=== PATIENT | female | born 2000 | race African-American/Black ===

== ENCOUNTER 2024-07-12 10:15 | Outpatient (CLI) | payer OTHER, SELFPAY ==
[2024-07-12 11:03] LABS: Basophils Percent Auto 0.5 % (0.2-1.2); Eosinophils Absolute Auto 0.1 K/mm3 (0-0.3); Eosinophils Percent Auto 3.6 % (0-4.4); Hematocrit 39.5 % (37.0-47.0); Hemoglobin 12.8 g/dL (12.0-15.0); Immature Granulocyte Absolute 0.01 K/mm3 (0.00-0.031); Immature Granulocyte Percent A 0.3 % (0-0.5); Lymphocytes Percent Auto 40.6 % (18.3-44.2); Mean Corpuscular HGB Conc 32.4 g/dl (32-36); Mean Corpuscular Hemoglobin 28.4 pg (26-34); Mean Corpuscular Volume 87.6 fl (80-100); Mean Platelet Volume 11.4 fl (7.4-10.4); Monocytes Absolute Auto 0.4 K/mm3 (0.1-0.6); Monocytes Percent Auto 11.2 % (2.6-8.5); Neutrophils Absolute Auto 1.7 K/mm3 (1.3-6.7); Neutrophils Percent Auto 43.8 % (45.5-73.1); Platelet Count Result 194 k/mm3 (150-375); Red Blood Count 4.51 M/mm3 (4.2-5.4); Red Cell Distribution Width 13.5 % (11.5-14.5); White Blood Count 3.9 K/mm3 (4.5-10.0)
[2024-07-12 11:15] LABS: Hemoglobin A1C 5.8 % (<5.7)
[2024-07-12 11:18] LABS: Iron 94 ug/dL (37-170)
[2024-07-12 11:28] LABS: Percent Iron Saturation 29 % (20-50)
[2024-07-12 11:37] LABS: Beta HCG Quantitative < 2.39 mIU/ML
[2024-07-12 12:17] LABS: Free T4 Free Thyroxine Reflex 0.77 ng/dL (0.78-2.19)
[2024-07-13 02:53] LABS: Progesterone <0.5 ng/mL
[2024-07-13 06:20] LABS: DHEA-Sulfate 320 mcg/dL (14-349); FSH 4.7 mIU/mL; Insulin Level Total 23.6 uIU/mL; Sex Hormone Binding Globulin 31 nmol/L (17-124)
[2024-07-17 16:07] LABS: Testosterone Free 3.5 pg/mL (0.1-6.4); Testosterone Total 22 ng/dL (2-45)
== END 2024-07-12 10:16 | disposition home or self-care (01) ==
PROVIDERS: Visit Provider Obstetrics & Gynecology
DX: N92.6 Irregular menstruation, unspecified (principal); E66.811 Obesity, class 1; L70.9 Acne, unspecified
CPT/HCPCS: 36415; 82627; 82670; 82728; 83001; 83002; 83036; 83498; 83525; 83527; 83540; 83550; 84144; 84146; 84270; 84402; 84403; 84439; 84443; 84702; 85025

== ENCOUNTER 2024-08-03 15:10 | Emergency (ER) | payer OTHER, SELFPAY ==
[2024-08-03] VITALS (7 sets, daily range): BP systolic 109–140; BP diastolic 69–85; PULSE 102–151; RESP 16–19; TEMP 36.4; O2SAT 70–100
--- NOTE | ~2024-08-03 | XR_ITS ---
XR chest 2V Ordering provider: Rakesh Garza MD History: 24 years Female with . elevated heart rate . Comparison: September 09, 2023 FINDINGS: MEDIASTINUM: The cardiac silhouette is not enlarged. LUNGS: No infiltrates, effusions or pneumothorax. OTHER: No free air under the diaphragm. IMPRESSION: No acute cardiopulmonary pathology. Reviewed, dictated and finalized at location A.
--- NOTE | 2024-08-03 15:15 | ECG_ITS ---
Test Date: 2024-08-03 15:20:34 Measurements Intervals [place] Rate: 162 P: 211 LA: 77 QRS: 52 QRSD: 118 T: 0 QT: 259 QTc: 426 Interpretive Statements SINUS TACHYCARDIA WITH SHORT LA INTERVAL MARKED ST DEPRESSION, CONSIDER SUBENDOCARDIAL INJURY [0.2+ mV ST DEPRESSION] No previous ECG available for comparison Electronically Signed On 08-04-2024 12:35:55 CDT by Nicholas Calderon M.D.
[2024-08-03 15:50] LABS: Basophils Absolute Auto 0.1 K/mm3 (0.0-0.1); Basophils Percent Auto 0.7 % (0.2-1.2); Eosinophils Absolute Auto 0.2 K/mm3 (0-0.3); Eosinophils Percent Auto 2.9 % (0-4.4); Hematocrit 39.8 % (37.0-47.0); Hemoglobin 13.3 g/dL (12.0-15.0); Immature Granulocyte Absolute 0.02 K/mm3 (0.00-0.031); Immature Granulocyte Percent A 0.3 % (0-0.5); Lymphocytes Absolute Auto 2.91 K/mm3 (0.9-3.2); Lymphocytes Percent Auto 38.2 % (18.3-44.2); Mean Corpuscular HGB Conc 33.4 g/dl (32-36); Mean Corpuscular Hemoglobin 28.5 pg (26-34); Mean Corpuscular Volume 85.4 fl (80-100); Mean Platelet Volume 12.1 fl (7.4-10.4); Monocytes Absolute Auto 0.8 K/mm3 (0.1-0.6); Monocytes Percent Auto 10.5 % (2.6-8.5); Neutrophils Absolute Auto 3.6 K/mm3 (1.3-6.7); Neutrophils Percent Auto 47.4 % (45.5-73.1); Platelet Count Result 246 k/mm3 (150-375); Red Blood Count 4.66 M/mm3 (4.2-5.4); Red Cell Distribution Width 12.9 % (11.5-14.5); White Blood Count 7.6 K/mm3 (4.5-10.0)
[2024-08-03 16:01] LABS: INR 1.1; Prothrombin Time 14.7 Seconds (11.1-14.7)
[2024-08-03 16:02] LABS: Partial Thromboplastin Time 27.9 Seconds (22.3-36.8)
[2024-08-03 16:05] LABS: Alanine Aminotransferase 18 U/L (6-35); Albumin Level 4.8 g/dL (3.5-5.1); Alkaline Phosphatase 56 U/L (38-126); Anion Gap 15 mmol/L (4-12); Aspartate Amino Transferase 31 U/L (14-36); Bilirubin,Total 1.1 mg/dL (0.2-1.3); Blood Urea Nitrogen 11 mg/dL (7-17); Calcium 9.6 mg/dL (8.4-10.2); Carbon Dioxide 18 mmol/L (22-30); Chloride 104 mmol/L (98-107); Estimated CRCL calculation 83 ml/min; Estimated Glomerular Filt Rate > 60; Glucose 135 mg/dL (65-110); Lipase 76 U/L (23-300); Potassium 3.1 mmol/L (3.4-5.0); Sodium 137 mmol/L (137-145)
[2024-08-03 16:15] LABS: Troponin I < 0.012 ng/mL (0.000-0.034)
--- NOTE | 2024-08-03 16:36 | ED_ITS ---
HPI - Arrhythmia/Palpitations General Chief Complaint: Arrhythmia/Palpitations Stated Complaint: Dizzy, light headed, feels out of it Time Seen by Provider: 08/03/24 16:08 History of Present Illness HPI narrative: Pt presents with feeling of heart palpitations and feeling of weakness and just not feeling right. Pt denies CP or SOB. Pt has no uti symptoms or cough or fever. Related Data Home Medications ?Medication ?Instructions ?Recorded ?Confirmed ?Last Taken ?Type spironolactone 100 mg tablet 100 mg PO DAILY 06/22/24 06/23/24 Unknown History Allergies Allergy/AdvReac Type Severity Reaction Status Date / Time No Known Allergies Allergy Verified 08/03/24 15:11 Review of Systems 2 Review of Systems: All systems reviewed & are unremarkable except as noted in HPI and below [facility] Social History Social History (Updated 06/23/24 @ 08:13 by Jason Martin MA) Smoking status: Never smoker Alcohol intake: current Substance use: never Substance use type: does not use Do You Feel Safe in your Home?: Yes Lack of Transportation: No Lack of Food: Never True Current Housing: I Have Housing Concerned About Future Housing: No Difficulty Paying Gas/Electric Bills: No Difficulty Paying for Meds: No Currently Unemployed: No Education: Bachelor's Degree Difficulty w/ Childcare or Family Care: No Living arrangements: other Occupation/Education: occupation Additional occupation/education comments: [employer] Gender identity (if verbalized by the patient): Female Sexual Orientation (if Verbalized by the Patient): Straight or Heterosexual Exam 2 Const: General: healthy appearing and no acute distress Nutritional Appearance: well nourished Orientation/consciousness: patient oriented x3 Limitations: no limitations Resp: Effort & Inspection: normal respiratory effort Auscultation: clear to auscultation bilaterally Cardio: Rate: regular rate Rhythm: regular rhythm GI: GI Palp: Yes Soft to palpation and No Tenderness to palpation present (GI) Auscultation: normal bowel sounds Skin: General skin exam: normal color Rashes: no rashes Wounds: no wounds Neuro: General: patient oriented x3, moves all extremities, no focal motor deficits and CN's II-XI intact bilaterally Cranial nerves: Yes Nystagmus not present Speech: normal speech Extrem: General: normal to inspection and no clubbing, cyanosis or edema Psych: Mental Status: mental status grossly normal Affect: normal affect Attitude: cooperative Course Vital Signs Vital signs: Vital Signs Temperature 97.5 F L 08/03/24 15:15 Pulse Rate 151 H 08/03/24 15:15 Respiratory Rate 19 08/03/24 15:15 Blood Pressure 140/76 08/03/24 15:15 Pulse Oximetry 100 08/03/24 15:15 Oxygen Delivery Room Air 08/03/24 15:15 Temperature 97.5 F L 08/03/24 15:15 Pulse Rate 109 H 08/03/24 18:23 Respiratory Rate 19 08/03/24 15:15 Blood Pressure 136/85 08/03/24 16:02 Pulse Oximetry 70 L 08/03/24 15:52 Oxygen Delivery Room Air 08/03/24 15:15 MDM - Arrhythmia/Palpitations MDM Narrative Medical decision making narrative: Pt presents with generalized weakness and palpitations. initial ekg st with short pr and st depression likely rate related. Pt converted on own and second ekg st rate [address] changes. trop neg. TSH low. will ad t4. K low at 3.1 will replace orally. will discuss with Dr Livingston about treatment. discussed with Dr Calderon and would start on metoprolol 50 mg daily and she can see in follow up. Lab Data 08/03/24 15:39 08/03/24 15:39 Labs: Lab Results 08/03/24 08/03/24 Range/Units 15:38 15:39 WBC 7.6 (4.5-10.0) K/mm3 RBC 4.66 (4.2-5.4) M/mm3 Hgb 13.3 (12.0-15.0) g/dL Hct 39.8 (37.0-47.0) % MCV 85.4 (80-100) fl MCH 28.5 (26-34) pg MCHC 33.4 (32-36) g/dl RDW 12.9 (11.5-14.5) % Plt Count 246 (150-375) k/mm3 MPV 12.1 H (7.4-10.4) fl Immature Gran % (Auto) 0.3 (0-0.5) % Neut % (Auto) 47.4 (45.5-73.1) % Lymph % (Auto) 38.2 (18.3-44.2) % [place] % (Auto) 10.5 H (2.6-8.5) % Eos % (Auto) 2.9 (0-4.4) % Baso % (Auto) 0.7 (0.2-1.2) % Lymph # (Auto) 2.91 (0.9-3.2) K/mm3 [place] # (Auto) 0.8 H (0.1-0.6) K/mm3 Eos # (Auto) 0.2 (0-0.3) K/mm3 Baso # (Auto) 0.1 (0.0-0.1) K/mm3 Abs Immat Gran (auto) 0.02 (0.00-0.031) K/mm3 Absolute Neuts (auto) 3.6 (1.3-6.7) K/mm3 Absolute Nucleated RBC 0.000 (0.0-0.012) K/mm3 Nucleated RBC % 0.0 (0.0-0.2) % PT 14.7 (11.1-14.7) Seconds INR 1.1 APTT 27.9 (22.3-36.8) Seconds Sodium 137 (137-145) mmol/L Potassium 3.1 L (3.4-5.0) mmol/L Chloride 104 (98-107) mmol/L Carbon Dioxide 18 L (22-30) mmol/L Anion Gap 15 H (4-12) mmol/L BUN 11 (7-17) mg/dL Creatinine 0.84 (0.7-1.0) mg/dL Estim Creat Clear Calc 83 ml/min Estimated GFR > 60 (59 - ) Glucose 135 H (65-110) mg/dL Calcium 9.6 (8.4-10.2) mg/dL Total Bilirubin 1.1 (0.2-1.3) mg/dL AST 31 (14-36) U/L ALT 18 (6-35) U/L Alkaline Phosphatase 56 (38-126) U/L Troponin I < 0.012 (0.000-0.034) ng/mL Total Protein 9.0 H (6.3-8.2) g/dL Albumin 4.8 (3.5-5.1) g/dL Lipase 76 (23-300) U/L TSH 0.223 L (0.465-4.680) uIU/mL Free T4 0.97 (0.78-2.19) ng/dL Discharge Plan Discharge Clinical Impression: Tachycardia, Hyperthyroidism Patient Disposition: Home Condition: Improved Instructions: Antibiotic Form, Hyperthyroidism (ED), Tachycardia (ED) Patient Language: Jamaican Prescriptions: New metoprolol tartrate 50 mg tablet 50 mg PO DAILY Qty: 30 0RF potassium chloride [K-Tab] 20 mEq tablet extended release 20 meq PO DAILY Qty: 30 0RF No Action spironolactone 100 mg tablet 100 mg PO DAILY metformin 500 mg tablet 500 mg PO QHS Qty: 90 0RF Follow-up/Referrals: Elan Livingston MD [Primary Care Provider] - Nicholas Calderon MD [Physician] -
--- NOTE | 2024-08-03 16:41 | ECG_ITS ---
Test Date: 2024-08-03 17:23:01 Measurements Intervals [place] Rate: 107 P: 55 [place]: 127 QRS: 29 QRSD: 89 T: 37 QT: 340 QTc: 455 Interpretive Statements SINUS TACHYCARDIA NONSPECIFIC T-WAVE ABNORMALITY ABNORMAL RHYTHM ECG Compared to ECG 08/03/2024 15:20:34 HEART RATE HAS DECREASED Electronically Signed On 08-04-2024 12:39:23 CDT by Nicholas Calderon M.D.
[2024-08-03] MEDS: POTASSIUM CHLORIDE 20 MEQ ER TABLET 40 MEQ PO (16:42)
[2024-08-03 17:46] LABS: Thyroid Stimulating Hormone 0.223 uIU/mL (0.465-4.680)
[2024-08-03] MEDS: METOPROLOL TARTRATE 50 MG TAB PO (18:23)
[2024-08-03 18:28] LABS: Free T4 Free Thyroxine 0.97 ng/dL (0.78-2.19)
[2024-08-03 19:08] LABS: Troponin I < 0.012 ng/mL (0.000-0.034)
== END 2024-08-03 19:02 | disposition home or self-care (01) ==
PROVIDERS: Emergency Medicine; Emergency Provider Emergency Medicine; PCP Family Medicine
DX: E05.90 Thyrotoxicosis, unspecified without thyrotoxic crisis or storm (principal); R00.0 Tachycardia, unspecified; Z79.84 Long term (current) use of oral hypoglycemic drugs; Z79.899 Other long term (current) drug therapy
CPT/HCPCS: 36415; 71046; 80053; 83690; 84439; 84443; 84484; 85025; 85610; 85730; 93005; 99284; A9270

== ENCOUNTER 2024-08-09 09:32 | Outpatient (CLI) | payer OTHER, SELFPAY ==
[2024-08-09 10:23] LABS: Anion Gap 9 mmol/L (4-12); Blood Urea Nitrogen 13 mg/dL (7-17); Calcium 9.6 mg/dL (8.4-10.2); Carbon Dioxide 24 mmol/L (22-30); Chloride 104 mmol/L (98-107); Estimated Glomerular Filt Rate > 60; Glucose 93 mg/dL (65-110); Potassium 3.9 mmol/L (3.4-5.0); Sodium 137 mmol/L (137-145)
== END 2024-08-09 09:33 | disposition home or self-care (01) ==
PROVIDERS: PCP Family Medicine; Visit Provider Family Medicine
DX: E87.6 Hypokalemia (principal)
CPT/HCPCS: 36415; 80048

== ENCOUNTER 2024-08-22 16:44 | Outpatient (CLI) | payer OTHER, SELFPAY ==
--- NOTE | ~2024-08-22 | US_ITS ---
Thyroid ultrasound. Clinical History: Thyrotoxicosis Findings: Real-time sonography of the thyroid gland was performed. The right lobe measures 4.9 x 2.0 x 1.8 cm. The left lobe measures 5.1 x 1.9 x 1.0 cm. The isthmus is 4 mm in AP diameter. There is a 2.4 x 1.5 x 1.3 cm hypoechoic solid nodule at the left posterior midpole. Impression: 2.4 cm TR-4 nodule in the right thyroid lobe. FNA recommended to establish histologic diagnosis. Reviewed, dictated and finalized at location . Impression: 2.4 cm TR-4 nodule in the right thyroid lobe. FNA recommended to establish hist ologic diagnosis.
== END 2024-08-22 16:45 | disposition home or self-care (01) ==
LOC: ANHIMG 16:45
PROVIDERS: PCP Family Medicine; Visit Provider Family Medicine
DX: E05.90 Thyrotoxicosis, unspecified without thyrotoxic crisis or storm (principal); E04.1 Nontoxic single thyroid nodule
CPT/HCPCS: 76536

== ENCOUNTER 2024-09-21 10:07 | Outpatient (CLI) | payer OTHER, SELFPAY ==
--- NOTE | ~2024-09-21 | US_ITS ---
EXAMINATION: US FNA w image guidance DATE: 09/21/2024 10:58 INDICATION: Nontoxic single thyroid nodule TECHNIQUE: A time-out was performed to verify the patient's name, date of , and procedure to be performed . The procedure and its benefits and risks were discussed with the patient. Risks specifically discus sed included bleeding and infection. The patient understood the risks and agreed to proceed. The neck was prepped and draped in the usual sterile manner. 3 mL 1% lidocaine was used for local anesthesia . 4 passes were made with a 25G needle into the lesion. Appropriate needle location was documented with continuous sonographic guidance. A sterile bandage was applied. There were no immediate compli cations. FINDINGS: Grayscale ultrasound images demonstrate biopsy needles advanced into the previous noted 2.4 cm right thyroid nodule of concern. IMPRESSION: 1. Successful ultrasound-guided fine needle aspiration of the previous noted 2.4 cm right thyroid no dule of concern. Reviewed, dictated and finalized at location A. IMPRESSION: 1. Successful ultrasound-guided fine needle aspiration of the previous noted 2 .4 cm right thyroid nodule of concern.
--- NOTE | 2024-09-21 10:57 | CY_PTH ---
PATIENT: Elva Ernandez LOC: [facility] U#:[id number] AGE/SX: 24/F ROOM: RE09/21/[address]: Elan Livingston MD : 2000 BED: DIS: 09/21/2024 SPEC #: [id number] RECD: 09/21/24 11:16 STATUS: MANUEL RENicholas #: [id number] [place]: 09/21/24 10:[address]: Elan Livingston DEPT: [facility] Cytology RECD BY: Margaret Rinaldi MLT, ([facility]) Tissues: A - FNA Thyroid Procedures: Hematoxylin and Eosin Stain Cell Block Fine Needle Aspiration Evaluation Fine Needle Aspiration Pathologist
== END 2024-09-21 10:08 | disposition home or self-care (01) ==
PROVIDERS: PCP Family Medicine; Visit Provider Family Medicine
DX: E04.1 Nontoxic single thyroid nodule (principal)
CPT/HCPCS: 10005; 88172; 88173; 88305

== ENCOUNTER 2024-10-31 11:39 | Outpatient (CLI) | payer OTHER, SELFPAY ==
--- OUTSIDE RECORDS SUMMARY | 2024-10-31 12:09 | XMS_ITS | Patient Health Record ---
Author Organization [facility] Address [address] [address] Care Team Providers Care Crystal Inspector Name Role Phone LUKE YUAN Primary Care Provider [phone] Allergies No Known Allergies Reason For Referral No Information Medications Medication SIG (Take, Route, Frequency, Duration) Notes Start Date End Date Status Fluticasone Propionate 50 MCG/ACT 1 spray in each nostril Nasally Once a day; Duration: 30 day(s) 10/22/2020 Active Immunizations Vaccine Route Administration Date Status Comme nts VARICELLA Unknown 06/24/2001 Administered VARICELLA Unknown 06/20/2010 Administered TdaP Unknown 11/28/2011 Administered TB MANTOUX ID Intradermal 06/12/2016 Administered TB MANT[place] ID Intradermal 09/19/2018 Administered PREVNAR 13 Unknown 2000 Administered PREVNAR 13 Unknown 2000 Administered PREVNAR 13 Unknown 2000 Administered MMR Unknown 06/24/2001 Administered MMR Unknown 07/04/2004 Administered Menveo IM Intramuscular 06/12/2016 Administered Meningococcal Conjugate Unknown 10/31/2011 Administered IPV Unknown 2000 Administered IPV Unknown 2000 Administered IPV Unknown 2000 Administered IPV Unknown 12/06/2001 Administered IPV Unknown 07/05/2004 Administered INFLUENZA >3 IM Intramuscular 01/02/2016 Administered HIB (Do Not Use) Unknown 2000 Administered HIB (Do Not Use) Unknown 2000 Administered HIB (Do Not Use) Unknown 2000 Administered HIB (Do Not Use) Unknown 12/06/2001 Administered HEP B Unknown 2000 Administered HEP B Unknown 2000 Administered HEP B Unknown 03/23/2001 Administered hep a Unknown 07/25/2003 Administered hep a Unknown 02/02/2004 Administered GARDASIL Unknown 10/31/2011 Administered GARDASIL Unknown 01/13/2012 Administered GARDASIL Unknown 05/28/2012 Administered FLUMIST Unknown 12/31/2008 Administered FLULAVAL>6MO IM Intramuscular 02/07/2019 Administered Dtap Unknown 2000 Administered Dtap Unknown 2000 Administered Dtap Unknown 2000 Administered Dtap Unknown 12/06/2001 Administered Dtap Unknown 07/05/2004 Administered Social History Sexual Hx: Question Answer Notes Had sex in past 12 months?(vaginal,oral or anal) Yes Use protection? Yes Have you ever had an STD before? 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
[2024-10-31 13:09] LABS: Thyroid Stimulating Hormone 0.138 uIU/mL (0.465-4.680)
[2024-10-31 18:22] LABS: Free T3 4.03 pg/mL (2.32-6.09); Free T4 Free Thyroxine 0.76 ng/dL (0.78-2.19)
== END 2024-10-31 11:40 | disposition home or self-care (01) ==
LOC: ANHLAB 11:43
PROVIDERS: PCP Family Medicine; Visit Provider Family Medicine
DX: E05.90 Thyrotoxicosis, unspecified without thyrotoxic crisis or storm (principal)
CPT/HCPCS: 36415; 83520; 84439; 84443; 84445; 84481; 86376